=== PATIENT | female | born 2000 | race Two or more races ===

== ENCOUNTER 2021-06-19 21:41 | Emergency (ER) | payer OTHER ==
[~2021-06-19] VITALS: Ht 160 cm; Wt 71.2 kg
[2021-06-20] MEDS ORDERED: NYS5LQ MT (07:52)
[2021-06-20 07:57] VITALS: BP 126/56
== END 2021-06-20 08:58 | disposition home or self-care (01) ==
LOC: ER 21:43
DX: B37.0 Candidal stomatitis (principal)

== ENCOUNTER 2022-04-28 11:24 | Emergency (ER) | payer OTHER ==
[~2022-04-28] VITALS: Ht 170.2 cm; Wt 118.2 kg
[~2022-04-28 11:24] MED LIST: NYS5LQ MT
[2022-04-28 13:01] LABS: Basophils # (auto) 0 10 ^3/uL (0-0.2); Eosinophils # (auto) 0.1 10 ^3/uL (0-0.8); Monocytes # (auto) 0.6 10 ^3/uL (0-1.3); Neutrophils # (auto) 6.8 10 ^3/uL (1.6-8.6); Nucleated Red Blood Cells % 0.1 %
[2022-04-28 13:02] LABS: Basophils % (auto) 0.3 % (0.0-2.0); Eosinophils % (auto) 0.8 % (0.0-7.0); Hematocrit 46.9 % (36.0-46.0); Hemoglobin 14.7 g/dL (12.2-16.2); Lymphocytes # (auto) 2.8 10 ^3/uL (0.4-5.4); Mean Corpuscular Hemoglobin 24.5 pg (28.0-32.0); Mean Corpuscular Hgb Conc. 31.3 g/dL (32.0-36.0); Mean Corpuscular Volume 78.3 fL (80.0-100.0); Monocytes % (auto) 5.7 % (0.0-12.0); Neutrophils % (auto) 66.2 % (37.0-80.0); Red Blood Cells 5.99 10^6/uL (4.0-5.20); Red Cell Distribution Width 16.4 % (11.8-14.3); White Blood Cell 10.3 10^3/uL (4.4-10.8)
[2022-04-28 13:23] VITALS: BP 132/79
[2022-04-28 14:23] LABS: Urine Bacteria NONE SEEN /hpf (None Seen); Urine Blood Negative /uL (Negative); Urine Specific Gravity 1.014 (1.001-1.035); Urine WBC 1 /hpf (0 - 5)
== END 2022-04-28 14:30 | disposition home or self-care (01) ==
LOC: ER 11:27
DX: O20.0 Threatened abortion (principal); Z79.899 Other long term (current) drug therapy; Z3A.00 Weeks of gestation of pregnancy not specified
CPT/HCPCS: 36415; 76801; 76817; 81001; 84702; 85025